=== PATIENT | female | born 1955 | race Caucasian/White ===

== ENCOUNTER 2016-10-22 08:40 | Emergency (ER) | payer OTHER, BC ==
[2016-10-22] MEDS ORDERED: ACETAMINOPHEN 500 MG TABLET PO ONE (08:47)
--- NOTE | 2016-10-22 08:58 | PDOC ---
Fall HPI - General Chief Complaint: Fall Stated Complaint: pain Date Seen by Provider: 10/22/16 Time Seen by Provider: 08:52 Source: POSITIVE: Patient Exam Limitations: POSITIVE: No limitations Nurse's Notes Reviewed & Considered: Yes - History of Present Illness Initial Comments: Patient comes in today with chief complaint of left shoulder pain status post fall. Patient arrived at work the morning here at [facility] and was walking from her car to the hospital when she tripped and fell. She sustained bruising over her left orbit with a small abrasion on the inner canthus left eye and nose. She has complaints of left anterior chest wall pain and left shoulder pain. She denies any loss of consciousness. Have you received a tetanus shot in the past 10 years?: Yes Body Location Affected: REPORTS: Head, Upper Extremity (L), Chest Timing: REPORTS: Abrupt Duration: 1/2 hour Severity: Mild Context of Fall: REPORTS: Tripped Fell From Height (in feet): 0 Quality: REPORTS: "Pain", Stabbing Location of Injuries / Pain: REPORTS: Left, Face, Nose, Eyes, Chest, Shoulder - Patient Home Medications Home Medications: Home Medications Lactobacillus Acidophilus [Acidophilus] 1 each PO QD 12/17/12 Ubidecarenone/Vitamin E Mixed [Coq10 Sg 100 Softgel] 1 each PO cap 12/29/13 Contour Next Ez 1 strip MC QD #100 each 01/31/14 Lancets 1 each MC QD #100 each 01/31/14 Cinnamon Bark [Cinnamon] 500 mg PO BID cap 04/28/14 Fluticasone Propionate [Flonase] 2 spr NASAL QD #1 bottle 08/23/14 Magnesium Amino Acid Chelate [Magnesium] 100 mg PO DAILY tab 10/27/14 Imiquimod [Aldara] 1 applic TOPICAL QD #30 pkg 02/05/16 Ascorbic Acid [Vitamin C] 500 mg PO QD tab 08/06/16 Atorvastatin Calcium 1 tab PO QHS #30 tab 08/06/16 Cimetidine 1 tab PO BID #60 tab 08/06/16 Diphenhydramine HCl [Benadryl] 25 mg PO QHS cap 08/06/16 Losartan/Hydrochlorothiazide [Losartan-Hctz 100-25 Mg Tab] 1 tab PO DAILY #30 tab 08/06/16 Laurie Extract [Laurie] 500 mg PO QD cap 08/06/16 Potassium Chloride [Klor-Con M20] 1 tab PO DAILY #30 tab 08/06/16 Saxagliptin HCl/Metformin HCl [Kombiglyze Xr 2.5-1,000 Mg Tab] 2 tab PO DAILY # 60 tab 08/06/16 Turmeric [Curcumin] 1 tab MC 08/06/16 Blood Sugar Diagnostic [Blood Glucose Test Strip] 1 each MC QD #100 strip Valacyclovir HCl [Valtrex] 2 tab PO Q12H #4 tab 10/16/16 - Patient Allergies Allergies/Adverse Reactions: Allergies Allergy/AdvReac Type Severity Reaction Status Date / Time cefaclor [From Ceclor] Allergy Intermediate RASH Verified 10/22/16 08:48 levofloxacin [From Levaquin] Allergy Intermediate right calf Verified 10/22/16 08:48 cramping ROS - Limitations ROS Limitations: No Limitations Constitution: REPORTS: Denies Symptoms Cardiovascular: REPORTS: Denies Cardiac Symptoms Respiratory: REPORTS: Denies Resp Symptoms Neurological: REPORTS: Denies Neuro Symptoms Gastrointestinal: REPORTS: Denies GI Symptoms Endocrine: REPORTS: Denies Symptoms Musculoskeletal: REPORTS: Joint Pain (Left shoulder), Muscle Aches Genitourinary: REPORTS: Denies Symptoms Eyes: REPORTS: Denies Symptoms ENT: REPORTS: Denies Symptoms Skin: REPORTS: Denies Skin Symptoms Lympathic: REPORTS: Denies Lympathic Symptoms Immunologic: POSITIVE: Denies Symptoms Psychiatric: POSITIVE: Denies Psych Symptoms Fall Physical Exam - General Appearance General Appearance: POSITIVE: Alert, Cooperative, No Acute Distress - HEENT HEENT: POSITIVE: Head Inspection Nml, Eyes Inspection Nml, Ears Inspection Nml, Oral/Dental Inspect. Nml, Pharynx Inspect. Nml, PERRL, EOMI, Other (Small area of abrasion and bruise left nasal bridge and the inner canthus of the left eye.) - Pupil Size Pupil Size: 5 mm: Bilateral - Neck Neck: POSITIVE: Non Tender, Painless ROM, Trachea Midline - Respiratory / CVS Respiratory / CVS: POSITIVE: No Ecchymosis, Breath Sounds Normal, No Respiratory Distress, Heart Sounds Normal, Regular Rate/Rhythm, Rib Tenderness ( Left anterior rib tenderness over the T5-T7 region.) - Abdomen Abdomen: Soft: (All Quadrants), Normal Bowel Sounds: (All Quadrants), Denies Tenderness: (All Quadrants) - Neuro / Psych Neuro / Psych: POSITIVE: Oriented X3, medical massage therapist Normal As Tested, Motor Normal, Sensation Normal, Mood Appropriate, Affect Appropriate - Skin Skin: POSITIVE: Intact, Warm, Dry - Back Back: POSITIVE: Normal Inspection, No CVA Tenderness, Non Tender, Painless ROM - Extremities Extremity Assessment: Non-Tender: (RUE), (RLE), (LLE), Normal ROM: (RUE), (RLE) , (LLE), No Edema: (ALL), No Swelling: (ALL), Normal Tendon Exam: (ALL), Tender : (LUE), Abnormal ROM: (LUE) (left shoulder pain With Posterior extension) Joint Exam: POSITIVE: Joints Normal, Normal ROM, Normal Gait, Normal Weight Bearing, Painful (Mild tenderness of the lateral left shoulder.) Fall Progress - Results Reviewed by me Xrays/CTs/US Reviewed by me: Yes Discussed with Radiologist: Yes - Patient's Progress Pain Medication Addressed: POSITIVE: Yes Re-Examine Time:: 09:29 Status: POSITIVE: Improved MDM / ED Course: Patient comes in and is evaluated, x-rays obtained, Tylenol provided. Chest shows no acute cardiopulmonary decompensation no bony abnormalities x-ray of her left shoulder shows no acute bony abnormalities. Assessment: Shoulder pain status post fall Plan: Discharge, alternate Tylenol and ibuprofen, ice. Follow up with orthopedics in 7-10 days if there's no improvement. - Consult Counseled: POSITIVE: Patient, RE: Radiology Results, RE: DX Patient Care Time - Estimated PCT Patient Care Time (In Minutes): 15 Vital Signs - VS Reviewed Vital Signs Reviewed: Yes Discharge Clinical Impression: Pain Discharge Disposition: Discharged to Home Condition: Good Patient Instructions Given at Discharge: Abrasion (ED)
--- NOTE | 2016-10-22 09:18 | DI ---
LEFT SHOULDER, 10/22/2016 8:47 AM: Clinical History: Injury. The patient fell. Previous Exam: None at this facility. 3 views are submitted. There is no acute soft tissue, osseous, or joint abnormality. Flocculent calci fications are present in the proximal humerus and these are consistent with a bone infarct. The visua lized portions of the left lung are normal. Reading: Normal left shoulder exam.
--- NOTE | 2016-10-22 09:23 | DI ---
PA /LATERAL CHEST X-RAY, 10/22/2016 8:51 AM : Clinical History: Fall. Injury to the left anterior ribs. Previous Exam: None at this facility. There is no acute soft tissue or bony abnormality. Heart size is normal. There is no pneumothorax or pleural effusion or evidence of a pulmonary contusion. Mediastinal structures are normal. There are n o pulmonary nodules. Reading: Normal chest x-ray.
[2016-10-22 10:27] VITALS: RESP 18; TEMP 96.6
== END 2016-10-22 09:40 | disposition home or self-care (01) ==
LOC: ER 08:40
DX: M25.512 Pain in left shoulder (principal); S00.31XA Abrasion of nose, initial encounter; S05.12XA Contusion of eyeball and orbital tissues, left eye, initial encounter; R07.89 Other chest pain; W00.0XXA Fall on same level due to ice and snow, initial encounter; Y92.238 Other place in hospital as the place of occurrence of the external cause; Y99.0 Civilian activity done for income or pay
CPT/HCPCS: 71020; 73030; 99282

== ENCOUNTER → 2016-11-04 | Outpatient (CLI) | payer BC ==
[2016-11-04 07:59] LABS: BLOOD UREA NITROGEN 14 mg/dL (7-22); CHLORIDE 101 meq/L (98-112); CREATININE 0.5 mg/dL (0.50-1.20); POTASSIUM 3.8 meq/L (3.8-5.2); SODIUM 140 meq/L (135-145)
[2016-11-04 08:00] LABS: ASPARTATE AMINO TRANSFERASE 19 IU/L (8-39); BILIRUBIN,TOTAL 0.5 mg/dL (0.3-1.2); CALCIUM 9.5 mg/dL (8.7-10.7); EST GLOMERULAR FILTRATION > 60 (>60 ml/min/1.73m(2)); GLUCOSE 165 mg/dL (78-110); HDL CHOLESTEROL 54 mg/dL (40-150); TRIGLYCERIDES 323 mg/dL (44-200)
== END ==
LOC: LAB 07:18
PROVIDERS: ATTEND Nurse Practitioner Family
DX: E11.9 Type 2 diabetes mellitus without complications (principal); E78.5 Hyperlipidemia, unspecified; I10 Essential (primary) hypertension
CPT/HCPCS: 36415; 80048; 82247; 82465; 82550; 82977; 83036; 83718; 84075; 84450; 84460; 84478

== ENCOUNTER → 2017-01-28 | Outpatient (CLI) | payer BC ==
[2017-01-28 07:20] LABS: HEMOGLOBIN A1C 6.35 % (4.2-6.0)
[2017-01-28 07:57] LABS: BLOOD UREA NITROGEN 14 mg/dL (7-22); BUN/CREATININE RATIO 23.33 (6-20); CALCIUM 9.7 mg/dL (8.7-10.7); CHOL/HDL RATIO 2.55 RATIO (0-4.0); EST GLOMERULAR FILTRATION > 60 (>60 ml/min/1.73m(2)); GAMMA GLUTAMYL TRANSPEPTIDASE 16 IU/L (8-78); HDL CHOLESTEROL 52 mg/dL (40-150); SERUM CHOLESTEROL 133 mg/dL (120-200)
== END ==
LOC: LAB 06:58
PROVIDERS: ATTEND Nurse Practitioner Family
DX: E11.9 Type 2 diabetes mellitus without complications (principal); E78.5 Hyperlipidemia, unspecified; I10 Essential (primary) hypertension
CPT/HCPCS: 36415; 80048; 82247; 82465; 82550; 82977; 83036; 83718; 84075; 84450; 84460; 84478

== ENCOUNTER → 2017-02-21 | Outpatient (CLI) | payer BC | LOC: LAB 07:38 | PROVIDERS: ATTEND Nurse Practitioner Family | DX: I10 Essential (primary) hypertension (principal) | CPT/HCPCS: 36415; 84132 ==

== ENCOUNTER → 2017-05-08 | Outpatient (CLI) | payer BC ==
--- NOTE | 2017-05-09 08:10 | DI ---
History: Foreign body right foot Comparison: None Findings: No fracture No malalignment No destructive/erosive lesions A marker is placed over the dorsum of the foot, between the first and second metatarsal phalangeal irene ints. No soft tissue foreign bodies are demonstrated. Impression: No acute injury. No soft tissue foreign bodies
== END ==
LOC: MOB RAD 16:32
PROVIDERS: ATTEND Podiatrist Foot & Ankle Surgery
DX: S90.851A Superficial foreign body, right foot, initial encounter (principal)
CPT/HCPCS: 73630